=== PATIENT | male | born 1965 | race Caucasian/White ===

== ENCOUNTER 2017-02-03 01:05 | Inpatient (IN) | payer OTHER, MEDICARE ==
[~2017-02-03] VITALS: Ht 165.1 cm; Wt 95.0 kg
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
--- NOTE | 2017-02-03 01:17 | NUR ---
TRIAGE: BIBA FROM HOME ON PD PAPER FOR +SI COMMENTS. PATIENT ALSO ADMITS TO +ETOH TONIGHT, UNKNOWN AMOUNT. DENIES HI/DRUG USE. PATIENT CALM AND COOPERATIVE. BEING EVALUATED BY MD RAMIREZ ON ARRIVAL TO ER. SECURITY AT BEDSIDE FOR WANDING.
--- NOTE | 2017-02-03 01:17 | NUR ---
PATIENT ALSO REPORTS "WAS SEEN IN [facility] LAST WEEK FOR DEPRESSION AND +SI BUT THEY WOULDN'T ADMIT ME."
[2017-02-03 02:02] LABS: ABSOLUTE BASOPHIL COUNT 0 /CUMM (0.0-0.2); ABSOLUTE EOSINOPHIL COUNT 0.1 /CUMM (0.0-0.7); ABSOLUTE GRANULOCYTE CT 6.9 /CUMM (1.4-6.5); ABSOLUTE LYMPH COUNT 1.8 /CUMM (1.2-3.4); ABSOLUTE MONOCYTE COUNT 0.5 /CUMM (0.10-0.60); BASOPHIL % 0.5 % (0.0-2.0); EOSINOPHIL % 1.4 % (0-5); GRANULOCYTE % 73.1 % (42.2-75.2); HEMATOCRIT 42.5 % (42-52); MEAN CORPUSCULAR HGB 28.5 PG (27.0-31.0); MEAN CORPUSCULAR HGB CONC 34.2 G/DL (33.0-37.0); MEAN CORPUSCULAR VOLUME 83.2 FL (80.0-94.0); MEAN PLATELET VOLUME 8.2 FL (7.4-10.4); PLATELET COUNT 245 /CUMM (130-400); RBC DISTRIBUTION WIDTH 13.1 % (11.5-14.5); RED BLOOD CELL CT 5.11 /CUMM (4.70-6.10); WHITE BLOOD CELL COUNT 9.5 /CUMM (4.8-10.8)
--- NOTE | 2017-02-03 02:17 | NUR ---
PT MEDICATED WITH IM ATIVAN PER EMAR IN R DELTOID.
[2017-02-03] MEDS ORDERED: ABILIFY5 M1 PO (02:22)
[2017-02-03] MEDS ORDERED: SOMA250 M1 PO (02:23)
[2017-02-03] MEDS ORDERED: NORVASC2.5 M1 PO (02:24)
[2017-02-03] MEDS ORDERED: OXYCODONE HCL5 M2 (02:25)
[2017-02-03] MEDS ORDERED: LISINOPRIL5 M1 PO (02:25)
[2017-02-03] MEDS ORDERED: GABAPENTIN100 M2 PO (02:25)
[2017-02-03] MEDS ORDERED: HALOPERIDOL1 M1 PO (02:26)
--- NOTE | 2017-02-03 02:53 | NUR ---
EKG DONE AND SHOWN TO MD RAMIREZ
--- NOTE | 2017-02-03 05:22 | NUR ---
EKG COMPLETED AND LABS REDRAWN AND SENT BY KAVON MILLER
--- NOTE | 2017-02-03 07:00 | NUR ---
PT INFORMED CARE ASSUMED BY THIS RN NOW. PT REQUESTING MORNING MEDS, INFORMED THAT THEY ARE NOT DUE UNTIL 1000.
--- NOTE | 2017-02-03 08:20 | NUR ---
PT RESTING ON STRETCHER, INFORMED OF PLAN OF CARE TO WAIT FOR XRAY AND CRISIS EVAL.
--- NOTE | 2017-02-03 09:01 | NUR ---
PT TO XRAY VIA STRETCHER NOW.
--- NOTE | 2017-02-03 09:29 | RADIOLOGY REPORT ---
EXAMINATION: XR CHEST CLINICAL INFORMATION: Pain, evaluation for rib fracture COMPARISON: None TECHNIQUE: 2 views of the chest were obtained. FINDINGS: The cardiomediastinal silhouette and pulmonary vascularity are within normal limits. The left lung is clear. There is pleural thickening along the lateral right thoracic wall, extending for about 14 cm in craniocaudal dimension and with 11 mm maximum thickness. There is a partially visualized lucent line in the lateral aspect of the right 10th rib, could represent a partially visualized rib fracture. No pleural effusions or pneumothorax. Metallic wire in the posterior upper thoracic/lower cervical soft tissue. IMPRESSION: 1. No active cardiopulmonary finding. 2. Right lateral pleural thickening. Comparison with prior chest x-rays and patient's clinical history is suggested. Chest CT scan evaluation can be considered. 3. Possible right 10th rib nondisplaced rib fracture.
--- NOTE | 2017-02-03 10:24 | NUR ---
PT MEDICATED WITH MORNING MEDS, VSS PRIOR TO ADMINISTRATION.
--- NOTE | 2017-02-03 11:25 | NUR ---
ASSUMED CARE OF PT FROM KAVON JAMES. PY LYING ON STRETCHER, CALM AND COOPERATIVE AT THIS TIME. SITTER AT BEDSIDE.
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
--- NOTE | 2017-02-03 13:40 | NUR ---
PT CRYING AND REPORTING TROUBLE BREATHING WHILE LYING DOWN, IN REFERENCE TO HIS TRANSFER TO ANOTHER HOSPITAL. THIS RN ASKED PT TO SIT UP, WHICH HE DID, AND PT WAS PROVIDED WITH ANOTHER PILLOW. THIS RN TRIED TO REASSURE PT THAT HE WOULD BE TAKEN WELL CARE OF. PT INSTRUCTED TO TAKE DEEP BREATHS. PT APPEARED TO CALM AND AMBULATED TO TELEPHONE. SITTER AT DOOR.
--- NOTE | 2017-02-03 14:55 | NUR ---
PT ASLEEP AT THIS TIME ON HIS RIGHT SIDE. RESPIRATIONS EQUAL AND UNLABORED. SITTER AT DOOR.
--- NOTE | 2017-02-03 15:42 | NUR ---
PT MEDICATED WITH KLONOPIN 1MG, SOMA 350MG AND NEURONTIN 100MG PO PER EMAR. PT CALM AND COOPERATIVE. SITTER AT DOOR.
--- NOTE | 2017-02-03 17:05 | NUR ---
PT LYING ON BED WATCHING TV IN ROOM 15. PT CALM AND COOPERATIVE. SITTER AT DOOR.
--- NOTE | 2017-02-03 18:30 | NUR ---
PT MEDICATED WITH PERCOCET 2 TABS FOR ALL OVER CHRONIC BODY PAIN. PT TEARFUL AND STATES HE HAD A BAD PHONE CALL WITH HIS BROTHER. PT ASKING FOR ATIVAN. SITTER AT DOOR.
--- NOTE | 2017-02-03 19:45 | NUR ---
MST REPORTING TO RN THAT PT WAS PACING IN ROOM 15 AND ASKING FOR HIS NURSE. THIS RN CHECKED ON PT WHO WAS ROCKING BACK AND FORTH ON BED. THIS RN REASSURRED PT THAT SHE WOULD SPEAK WITH MD ABOUT OBTAINING HIM A MEDICATION FOR HIS ANXIETY.
--- NOTE | 2017-02-03 20:11 | NUR ---
PT MEDICATED WITH KLONOPIN 1MG PRN FOR ANXIETY. PT STATES HE IS "MANIC" AND WAS SEEN ROCKING BACK AND FORTH ON BED. SITTER AT DOOR FOR SAFETY
--- NOTE | 2017-02-03 22:18 | NUR ---
PT MEDICATED WITH [facility], WITH THE EXCEPTION OF TRAZODONE WHICH PT REFUSED. PT REMAINS CALM AND COOPERATIVE AT THIS TIME WITH SITTER AT DOOR.
--- NOTE | 2017-02-03 22:49 | NUR ---
ASSUMED CARE OF PT PER KAVON ALFONSO. PT RESING IN WITH RR, SITTER IN PLACE FOR SAFETY.
--- NOTE | 2017-02-04 01:30 | NUR ---
PT RESTING WITH RR, WILL CONTINUE TO MONITOR, PT SNORING. SITTER IN PLACE FOR SAFETY.
--- NOTE | 2017-02-04 03:39 | NUR ---
PT SLEEPING WITH RR, WILL CONTINUE TO MONITOR, SITTER IN PLACE FOR SAFETY.
--- NOTE | 2017-02-04 05:07 | NUR ---
PT MEDICATED WITH 2 TAB PERCOCET PER PRN ORDER FOR PAIN 05/15.
--- NOTE | 2017-02-04 06:32 | NUR ---
PT AWOKEN FOR VITALS, PT INFORMED BREAKFAST WILL ARRIVE SOON
--- NOTE | 2017-02-04 07:52 | NUR ---
PT RESTING IN DARKENED ROOM WITH EYES CLOSED REGULAR RESPIRATIONS NOTED WITH EQUAL CHEST RISE AND FALL PRESENT SITTER PRESENT. AWAITING DISPO TODAY
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
--- NOTE | 2017-02-04 10:47 | NUR ---
PHARMACY CALLED FOR AM MEDS.
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
--- NOTE | 2017-02-04 11:28 | NUR ---
ASSUMED CARE OF THIS PT. MEDICATED WITH MORNING MEDS PER EMAR. PT AWAITING TRANSFER TO [facility]. PT CALM AND COOEPRATIVE. SITTER AT DOOR.
--- NOTE | 2017-02-04 12:23 | NUR ---
PT MEDICATED WITH PERCOCET 2 TABS FOR BODY PAIN 05/15
--- NOTE | 2017-02-04 13:26 | NUR ---
PT CALM AND COOPERATIVE, WATCHING TV IN ROOM 15. SITTER AT DOOR. PT ANTICIPATING TRANSFER DOWN TO [facility].
--- NOTE | 2017-02-04 14:57 | NUR ---
PT'S VSS. PT CALM AND COOPERATIVE. SITTER AT DOOR.
--- NOTE | 2017-02-04 15:49 | NUR ---
PT MEDICATED WITH SOMA 350MG, LISINOPRIL 5MG AND ABILIFY 5MG PER EMAR
[2017-02-04 16:34] VITALS: BP 130/93
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
[2017-02-04 20:15] VITALS: BP 149/93
[2017-02-05] VITALS (7 sets, daily range): BP systolic 133–151; BP diastolic 75–90
--- NOTE | 2017-02-05 12:41 | NUR ---
PT IS TEARFUL BUT OVERALL PLEASANT, CALM, COOPERATIVE AND COMPLIANT, ACCEPTS REDIRECTION AND FEEDBACK WELL, REPORTED - MOOD/SLEEP AND NOT ALWAYS FEELING SAFE (TEAM AWARE) AND IS ABLE TO VERBALIZE NEEDS AND RESPONDS WELL WITH + REINFORCEMENT AND ENCOURAGEMENT, OVERALL IS STABLE.
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
--- NOTE | 2017-02-05 15:33 | SOCIAL WORKER PROG NOTE PSYCH ---
Social Work Progress Note Progress Note Pt states he was overwhelmed and sad and has a long history of cutting, pt has scars on stomach and on inner forearm. He has providers are [facility] and Has a PCP, I said to him , seems like you take care of yourself, he agreed. Pt mentions he has a brother who is sick, and it reminds him of the 4 family member he lost in a 2 year timespan including his Mom and Dad. "Its juts too much some time". * Family attitudes * Community resource contacts and liaison with other clinicians/agencies
--- NOTE | 2017-02-05 15:33 | SOCIAL WORKER PROG NOTE PSYCH ---
Social Work Progress Note Progress Note Please include, when applicable: * Interviews with the patient * Interviews with family members * Assessments linked to the treatment plan * Additions to or changes in the treatment plan along with reasons for same * Contacts with family and significant others in treatment, including family meeting(s) * Family attitudes * Community resource contacts and liaison with other clinicians/agencies
--- NOTE | 2017-02-05 15:33 | SOCIAL WORKER TX PLAN PSYCH ---
Treatment Plan - Please Document: - Evidence that there is ongoing collaboration between - the patient and the interdisciplinary team, - including the patient's active participation and - responsibility for engaging in the treatment regimen, - and that the treatment plan is individualized and - relevant to the patient's conditions. - Treatment plan should reflect documentation indicating - that all active therapeutic efforts are included. Strengths/Capabilities: Motivated for treatment Physical Limitations (Interventions): None noted. Walks with a limp. Problem/Goals #1 Problem #1: suicidal ideation Goal (Short Term): Be free of suicidal thoughts/attempts Develop 3 coping skills to deal with depression Identify 3 positive support systems to reach out to in crisis Goal ([place]): Shower, dress, and then do something every day Make short and simple to do lists and complete three tasks each day Celebrate little successes each day using positive self talk and/or journaling Develop strategies for thought distraction when ruminating on the past Interventions: Learn ways to manage anxiety symptoms accordingly and identify coping skills to prevent suicidal ideation from occurring due to anxious/depressed feelings. Learn ways to manage medications accordingly and identify positive supports to manage unusual symptoms that may occur. Modalities: individual therapy daily group therapy three to four groups daily family meeting if possible med management/ psych evaluation case management On the unit relapse prevention group, social skills, relaxation, spirituality, topic groups etc. Problem/Goals #2 Problem #2: polysubstance abuse Goal (Short Term): Goal: Be free of drug/alcohol use/abuse Avoid people, places and situations where temptation might be overwhelming Learn five triggers for alcohol & drug use Identify 3 sober supports Goal ([place]): I will attend all AA groups on unit and connect to AA in my community I will Identify 3 coping skills for cravings to use i.e sober supports I will set up aftercare for dual diagnosis program to address both mental health and substance abuse concerns Interventions: Learn ways to manage cravings to use substances accordingly and identify coping skills to prevent relapse from occurring due to anxious/depressed feelings. On the unit relapse prevention group, social skills, relaxation, spirituality, topic groups etc. Modalities: individual therapydaily group therapy three to four groups daily family meeting if possible med management/ psych evaluation case management DSM5/PS Stressors/Medical Prob Diagnosis' (DSM 5, Stressors, Medical): 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 Treatment Team - Responsibilities of members of the treatment team include: - Medication Management- MD or EMISSIONS REPAIR TECHNICIAN - Medication Administration and Monitoring- Nurse - Group Therapy- Occupational Therapist - 1:1 Therapy,Disch Planning,family involvement-[employer] Development Specialist Manager
--- NOTE | 2017-02-05 15:42 | IP INCIDENTAL NOTE PSYCH ---
Incidental Note Notation: HENRIQUE of [facility] in paper chart. Collateral received from psychiatrist Dr. Eugenia Rivas: Patient has a longstanding history of Schizoaffective disorder, Borderline PD, MDD, and a long history of alcohol dependence (in remission). Patient had returned from a vacation in [place] where he allegedly left his prescriptions (including rx Klonopin). He came to the clinic on 01/22 requesting a Klonopin refill after reporting the above. He was asked to provide a utox first which made him agitated led him to leave facility. Refill for Klonopin was never given to him. He then called [facility] and left multiple messages for psychiatrist and therapist stating he was done with tx there. He also fired his VNS. Shortly after he was admitted inpatient. Dr. Rivas reported much of his anxiety/hallucinations/mood symptoms are triggered by prior losses and currently ill brother. was informed that patient came to ED upon receiving news that his GF was diagnosed with cervical CA. He frequently uses cannabis. Had a history of alcohol dependence, has not used in some time. Dr. Rivas reported this is the patient's 3rd inpatient hospitalization in 2 weeks. He was previously hospitalized at [facility] and [facility]. Last medications prescribed by her were: Abilify 30mg daily Cogentin 1mg BID Risperdal 4mg BID Clonazepam 1mg TID Lexapro 20mg daily Trazodone 100mg QHS Dr. Rivas expressed she would be willing to have patient return to [facility] for continued tx post-dsicharge.
[2017-02-06] VITALS (7 sets, daily range): BP systolic 136–146; BP diastolic 70–83
--- NOTE | 2017-02-06 04:01 | NUR ---
SLEPT WELL UNTIL 0330 C/O RIB PAIN 04/14. PERCOCET GIVEN WITH GOOD EFFECT.
--- NOTE | 2017-02-06 13:52 | NUR ---
PT DISPLAYS ATTENTION SEEKING BEHAVIORS FROM TIME TO TIME, FREQUENTLY APPROACHES THE NURSES STATION TRYING TO ENGAGE WITH STAFF, OFTEN TALKS LOUDLY ABOUT HIS HISTORY REGARDING CUTTING HIMSELF. PT HAS BEEN ATTENDING GROUPS. NO SCORING ON CIWA. VS ARE STABLE. PT CONFIRMS PASSIVE SI BUT DENIES ANY PLANS WHILE ON THE UNIT.
--- NOTE | 2017-02-06 14:55 | CP SOUTH PROGRESS NOTE PSYCH ---
Psych (Inpt) Progress Note Progress Note Include the following elements, when applicable: Involvement in the active treatment of the patient with behavioral observations of the patient and the patient's response to the treatment. Review of the ongoing treatment process in the context of the treatment plan. Indication of how multi-disciplinary staff members are carrying out the treatment plan. Plans for future interventions and recommendations for revision of the treatment plan. Liaison with other physicians/providers. Progress Note: The patient is a 51-year-old white male admitted on 02/04/17. He carries the diagnosis schizoaffective disorder, bipolar type, borderline personality disorder by history, major depression by history, rule out PTSD, alcohol use disorder, rule out cocaine use disorder and cannabis use disorder. Case and treatment plan discussed in team meeting. Staff reports that he has homicidal thoughts towards his brother, basically to do a mercy killing because brother has COPD. Medication list reviewed. Patient seen at 1:14 PM. He is an ambulatory, bearded, overweight white male, dressed in T-shirt and pajama pants, sitting in a chair in no acute distress. He is calm, polite and cooperative. There is no psychomotor agitation or retardation. Speech is normal in volume, rate and tone. Affect is calm and blunted. He feels "so-so." Reports the lithium put him out like a light and he states this was his first time taking it. Reports he then awoke at 11 PM with vivid dreams, rats in his room, crawling up his bed. Then he slept until 2:30 AM. States he was up from 2:30 AM to 3:30 AM and then slept from 3:30 until 5: 30 AM. Reports having constant pain from multiple orthopedic issues. States he is just uncomfortable all the time. Patient requested an increase in Percocet dose from 10 mg to 15 mg. I checked the [facility] and saw that he has been receiving Endocet 10-325 t.i.d., so I informed him I would not be increasing his Percocet, which is ordered here at q.6 hours p.r.n. Reports mood is a little bit better because he is talking to people. Reports girlfriend has not been able to visit because she does not have a car. Rates sad mood and anxiety both about 8/10. Denies feeling helpless. Feels hopeless and worthless. Feels guilty for not having taken better care of his father, who in 1994 for melanoma. Denies suicidal thoughts but wants to cut himself to release emotional pain. He gives a safety promise for here. Reports he has been a cutter since 13 years old. Reports homicidal thoughts towards brother because brother is very ill and the patient wants to put his brother out of misery. I asked how patient's niece would feel about this, and he responsed that "she would probably be pissed." Patient states that he has a little bit of a God complex. Reports last auditory hallucinations were experienced about 2-3 weeks ago. Denies visual hallucinations. Feels that occasionally people are out to harm him, just people in general. Appetite is so-so. Energy is low. IMPRESSION: Slow progress. Continue present treatment plan. I have ordered a lithium for Friday morning. Continues to require inpatient level care.
--- NOTE | 2017-02-06 21:58 | NUR ---
PT IS VISIBLE ON UNIT, SOCIAL WITH PEERS AND WATCHING TV. PT STORMED OUT OF WRAP UP MEETING AND SAT IN LOUNGE. PT WAS VISIBLY ANXIOUS AND IRRITATED, SUPPORT PROVIDED BY STAFF WHERE PT DISCLOSED FRUSTRATION WITH SOME OF HIS PEERS. PT IS FREQUENTLY AT DESK, INTRUSIVE AT TIMES. IRRITABLE IF REQUESTS ARE NO MET IMMEDIATELY. OVERALL COOPERATIVE AND COMPLIANT WITH STAFF. NO SI REPORTED. PT HAS AN ANXIOUS MOOD AND AFFECT.
[2017-02-07] VITALS (8 sets, daily range): BP systolic 104–145; BP diastolic 76–87
--- NOTE | 2017-02-07 10:52 | CP SOUTH PROGRESS NOTE PSYCH ---
Psych (Inpt) Progress Note Progress Note Include the following elements, when applicable: Involvement in the active treatment of the patient with behavioral observations of the patient and the patient's response to the treatment. Review of the ongoing treatment process in the context of the treatment plan. Indication of how multi-disciplinary staff members are carrying out the treatment plan. Plans for future interventions and recommendations for revision of the treatment plan. Liaison with other physicians/providers. Progress Note: I discussed this patient's progress to date, current mental status, treatment process in the context of the treatment plan, and discharge planning with staff/ team in the daily morning inpatient team meeting. I also met with the patient myself in individual session. OBJECTIVE: Current Medications Sig/Evon Start time Last Medication Dose Route Stop Time Status Admin Acetaminophen 500 MG Q12P PRN 02/07 1700 AC PO Amlodipine Besylate 2.5 MG DAILY 02/05 1000 AC 02/07 PO 1024 Benztropine Mesylate 1 MG BID 02/04 2200 AC 02/07 PO 1024 Carisoprodol 350 MG TID 02/04 1600 AC 02/07 PO 1652 Clonazepam 1 MG 02/07 2000 AC PO 02/14 1959 Clonazepam 0.5 MG 0800 02/07 0800 AC 02/07 PO 02/14 0759 1024 Clonazepam 1 MG BID 02/04 2200 DC 02/06 PO 02/11 2159 2101 Gabapentin 400 MG TID 02/07 2200 AC PO Gabapentin 100 MG .STK-MED ONE 02/06 2237 DC PO 02/06 2238 Gabapentin 300 MG TID 02/05 1600 DC 02/07 PO 1652 Gabapentin 200 MG Q2 HRS NEEDED PRN 02/04 1545 AC 02/06 PO 2243 Haloperidol 7.5 MG BID 02/07 2200 AC PO Haloperidol 2 MG .STK-MED ONE 02/06 1728 DC PO 02/06 1729 Haloperidol 2 MG Q4 HRS NEEDED PRN 02/05 1500 AC 02/06 PO 2242 Haloperidol 5 MG BID 02/04 2200 DC 02/07 PO 1024 Lisinopril 5 MG DAILY 02/04 1515 AC 02/07 PO 1024 [place] Carbonate 300 MG 0800,02/05 2000 AC 02/07 PO 1024 Melatonin 5 MG AT BEDTIME 02/07 2200 AC PO Melatonin 3 MG AT BEDTIME PRN 02/07 1130 AC PO Melatonin 5 MG AT BEDTIME PRN 02/05 2200 DC 02/06 PO 02/07 2159 2112 Oxycodone/ 2 TAB Q6P PRN 02/04 1530 AC 02/07 Acetaminophen PO 1209 Polyethylene Glycol 17 GM DAILY 02/07 1715 AC PO Vital Signs Date Time Temp Pulse Resp B/P B/P Pulse O2 O2 Flow FiO2 Mean Ox Delivery Rate 02/07 1551 78 104/76 02/07 1544 78 104/76 02/07 1224 79 134/84 0505 1218 79 134/84 0505 1024 75 127/84 0505 1024 75 127/84 0505 0738 98.4 75 127/84 05/05 0722 98.4 75 127/84 05 1942 98.4 74 145/70 ASSESSMENT: Chart, progress notes, labs, VS and medication list reviewed. No new lab results today. VS within normal limits. Met with patient this morning. He shared complaints of arthritis pain and constipation. Could not recall last BM. Presented calm and cooperative. Reported his mood as "not so good." Expressed frustration towards select intrusive peers. Reported last night he could not cope with a certain female peer; as a result he hit himself in the R eye. He denied changes in vision. There was no evidence of bruising. He denied pain to affected area. He endorsed urges to harm himself by cutting, but deneid acting on these urges since arrival to unit. Asked patient if he would benefit from a sitter for safety, however he claimed this would make him more agitated. He gave a safety promise while on unit and reported feeling safe here. Reported that he can cope by taking space away from trigger and by processing feelings with staff before acting on self-harming behavior going forward. He denied passive and active suicidal ideation, plans and intent. He expressed passive HI towards his ill brother with COPD. Asked patient again how he thinks his niece (brother's daughter) would feel if he acted on these thoughts? He reported it would devastate her. He reported that thinking of his family has prevented him thus far from acting on these thoughts. He denied HI plans or intent. He reported recurrence of AH, non-command and non-distressing in nature of a "mumbling male voice." He noted this to be the same voice he always hears, but last heard 1-2 weeks ago. Reported the voice "comes and goes. " He denied visual hallucinations and paranoid ideation. There was no evidence of delusions or patient responding to internal stimuli. He reported sleep was poor d/t frequent night time awakenings. Reported appetite was stable. Cognition was grossly intact. Insight & judgement limited. Reported tolerating medications well and denied untoward effects. PLAN: 1. Continue monitoring on unit for mood, safety, AH. 2. Increase Haldol from 5mg BID to 7.5mg BID for AH. Continue prn Haldol. 3. Add Melatonin from 5mg QHS prn for insomnia. Continue Melatonin 5mg QHS. 4. Add Tylenol 500mg Q12H prn for moderate pain and increase Gabapentin from 300mg TID to 400mg TID for neuropathic pain. Continue prn percocet as ordered. 5. Continue [place] as ordered. Level scheduled for 02/09/17 at 0600. 6. Start Miralax daily for constipation. 7. Dispo planning per primary team.
--- NOTE | 2017-02-07 13:31 | SOCIAL WORKER PROG NOTE PSYCH ---
Social Work Progress Note Progress Note ARIAN MALONEY [id number] 1965 ARIAN MALONEY [id number] Pended Authorization # Client Authorization # Type of Request [id number] CONCURRENT Date of Admission/ Start of Services Requested From Submission Date 02/04/2017 02/07/2017 02/07/2017
--- NOTE | 2017-02-07 13:51 | SOCIAL WORKER PROG NOTE PSYCH ---
Social Work Progress Note Progress Note Pt states he is coping with being on unit, and social anxiety, a resident made him frustrated and he stated he punched himself in the face to relieve feeling upset, "when someone upsets me, I take it out on myself instead of them". He reports I know the self harming behaviors are "a short term solution for a correction problem". Pt continues to be stressed and feels a bit more safe, but not stable. Would not want me to contact family, but is agreeable to returning to [facility], and states he rides the bus, and can manage to deal with anxiety on the bus bi weekly for his appointmetns.
--- NOTE | 2017-02-07 15:08 | NUR ---
PT PRESENT IN COMMUNIYT - INTERACTING WITH PEERS AND STAFF. PT VERY SOCIAL. PT COMPLIANT AND COOPERATIVE. PT MOOD STABLE - BRIGHT AFFECT. PT ATE WELL. VS WNL. NO COMPLAINTS.
--- NOTE | 2017-02-07 20:23 | NUR ---
PT INTRODUCED HIMSELF TO STAFF SOON SHIFT CHANGED. HE HAS NOT BEEN PROBLEMATIC ON THE UNIT AND EXPRESSES THOUGHTS AND OPINIONS TO STAFF. HE APPEARS TO BE SLIGHTLY CONSTRICTED AT TIME BUT DOES NOT ISOLATE. PT DENIES ANY THOUGHTS OF SI AT THIS TIME.
[2017-02-08] VITALS (7 sets, daily range): BP systolic 126–142; BP diastolic 76–90
--- NOTE | 2017-02-08 04:06 | NUR ---
Slept. No issues or complaints
--- NOTE | 2017-02-08 14:12 | CP SOUTH PROGRESS NOTE PSYCH ---
Psych (Inpt) Progress Note Progress Note Include the following elements, when applicable: Involvement in the active treatment of the patient with behavioral observations of the patient and the patient's response to the treatment. Review of the ongoing treatment process in the context of the treatment plan. Indication of how multi-disciplinary staff members are carrying out the treatment plan. Plans for future interventions and recommendations for revision of the treatment plan. Liaison with other physicians/providers. Progress Note: Pt notes that he did not sleep well. Notes overall improved mood though fleeting passive SI earlier in the day. Denies current active or passive SI. Denies HI. Denies AVHs. Spoke briefly about rescue cat at home that he misses. Current Medications Sig/Evon Start time Last Medication Dose Route Stop Time Status Admin Acetaminophen 500 MG Q12P PRN 02/07 1700 AC PO Amlodipine Besylate 2.5 MG DAILY 02/05 1000 AC 02/08 PO 0900 Benztropine Mesylate 1 MG BID 02/04 220 AC 02/08 PO 0856 Carisoprodol 350 MG TID 02/04 1600 AC 02/08 PO 0901 Clonazepam 0.5 MG BID 02/08 1000 AC 02/08 PO 02/14 2159 0859 Clonazepam 1 MG 02/07 DC 02/07 PO 02/14 1959 1917 Clonazepam 0.5 MG 0800 02/07 0800 DC 02/07 PO 02/14 0759 1024 Docusate Sodium 100 MG BID 02/07 2200 AC 02/08 PO 0856 Gabapentin 400 MG TID 02/07 2200 AC 02/08 PO 0859 Gabapentin 200 MG Q6-PRN PRN 02/07 2000 AC PO Gabapentin 300 MG TID 02/05 1600 DC 02/07 PO 1652 Gabapentin 200 MG Q2 HRS NEEDED PRN 02/04 1545 DC 02/06 PO 2243 Haloperidol 7.5 MG BID 02/07 2200 AC 02/08 PO 0857 Haloperidol 2 MG Q4 HRS NEEDED PRN 02/05 1500 AC 02/06 PO 2242 Lisinopril 5 MG DAILY 02/04 1515 AC 02/08 PO 0900 [place] Carbonate 300 MG 0800,02/05 AC 02/08 PO 0856 Melatonin 9 MG AT BEDTIME 02/08 2200 UNVr PO Melatonin 5 MG AT BEDTIME 02/07 2200 DC 02/07 PO 2158 Melatonin 3 MG AT BEDTIME PRN 02/07 1130 AC PO Oxycodone/ 2 TAB Q6P PRN 02/04 1530 AC 02/08 Acetaminophen PO 1216 Polyethylene Glycol 17 GM DAILY 02/07 1715 AC PO Laboratory Tests 02/06 0553 Chemistry Sodium (137 - 145 mmol/L) 138 Hemoglobin A1c (4.2 - 5.8 %) 6.3 H Vital Signs Date Time Temp Pulse Resp B/P B/P Pulse O2 O2 Flow FiO2 Mean Ox Delivery Rate 02/08 1215 87 142/79 02/08 1214 87 142/79 / 0900 97.6 77 16 126/90 05/ 0900 97.6 77 16 126/90 05/06 0808 97.6 77 126/90 05/06 0759 97.6 77 126/90 05/05 1999 97.8 75 145/87 05/05 195 97.8 75 145/87 0505 1551 78 104/76 05/05 1544 78 104/76 MSE Appears as stated age. Cooperative behavior, good, appropriate eye contact. Nl speech rate and prosody. No psychomotor retardation or agitation. Mood fine Affect flat constricted, appropriate, non-liable. Linear and goal directed thought process. Denies SI or HI. Does not appear to be responding to internal stimuli. Denies AVHs, paranoia, or delusions. I/J: limited A/P: Pt with MDD with psychotic features with intermittent fleeting SI which continues. -Will monitor closely for more prolonged SI or active SI, low threshold for 1:1 - Increase melatonin to 9mg nightly - Otherwise continue medication regimen - [facility]
--- NOTE | 2017-02-08 16:21 | NUR ---
PT HAS BEEN WITHDRAWN AND ISOLATIVE IN ROOM MOST OF DAY. PT ENDORSES PASSIVE SI, STATES HE WILL NOT HARM SELF HERE. PT PRESENT IN COMMUNITY FOR MEALS AND VITALS. NO S/S OF DETOX NOTED OR REPORTED, NO SCORING ON CIWA. PT HAS SOME INTERACTION WITH PEERS AND STAFF WHEN PRESENT ON UNIT. PT ATTENDED ONE GROUP TODAY. VITALS ARE STABLE, APPETITE IS GOOD.
--- NOTE | 2017-02-08 18:32 | NUR ---
PATIENT IS PRESENT IN THE COMMUNITY, A&O X 3, COMPLIANT WITH MEDICATION AND GROUP THERAPIES, PT REPORT GOOD NIGHT SLEEP AND APPETITE, VITAL SIGN IS STABLE AND WNL, MOOD IS STABLE WITH FULL RANGE AFFECT, INTERACTS WITH OTHER PEERS AND STAFF MEMBERS. PT HAS ONE ANGER EXPLOSION RIGHT AFTER THE DINNER SIGHT HIS MENUE THAT DID NOT COME HE REQUESTED. PATIENT DENIES THOUGHT OF SELF-HARM AND TO SOMEONE ELSE.
--- NOTE | 2017-02-08 20:46 | NUR ---
PT IS ISOLATIVE AND WITHDRAWN, REMAINING IN BED FOR MAJORITY OF EVENING. WHEN ASKED FOR 1999 VITAL SIGNS, PT AT FIRST REFUSED BUT COMPLIED WHEN ENCOURAGED. OVERALL COOPERATIVE AND COMPLIANT WITH STAFF. AT 1600 VITALS, PT REPORTED SI BUT CONTRACTS FOR SAFETY AND HAS NO INTENT TO HARM SELF WHILE ON UNIT. NO COMPLAINTS REPORTED. PT HAS AN IRRITABLE MOOD AND FLAT/CONSTRICTED AFFECT.
[2017-02-09] VITALS (8 sets, daily range): BP systolic 136–140; BP diastolic 77–87
--- NOTE | 2017-02-09 05:47 | NUR ---
PT IN BED VERY EARLY. PT SLEPT.
--- NOTE | 2017-02-09 11:40 | CP SOUTH PROGRESS NOTE PSYCH ---
Psych (Inpt) Progress Note Progress Note Include the following elements, when applicable: Involvement in the active treatment of the patient with behavioral observations of the patient and the patient's response to the treatment. Review of the ongoing treatment process in the context of the treatment plan. Indication of how multi-disciplinary staff members are carrying out the treatment plan. Plans for future interventions and recommendations for revision of the treatment plan. Liaison with other physicians/providers. Progress Note: Pt notes that he slept "much better." He notes good mood today. Endorses continued passive SI to "maybe cut myself but then I ignore it and feel better. " Does not feel active SI. Feels can come to staff if increasing SI. Denies AVHs. Current Medications Sig/Evon Start time Last Medication Dose Route Stop Time Status Admin Acetaminophen 500 MG Q12P PRN 02/07 1700 AC PO Amlodipine Besylate 2.5 MG DAILY 02/05 1000 AC 02/09 PO 0840 Benztropine Mesylate 1 MG BID 02/04 2200 AC 02/09 PO 0839 Carisoprodol 350 MG TID 02/04 1600 AC 02/09 PO 0842 Clonazepam 0.5 MG BID 02/08 1000 AC 02/09 PO 02/14 2159 0842 Docusate Sodium 100 MG BID 02/07 2200 AC 02/09 PO 0840 Gabapentin 400 MG TID 02/07 2200 AC 02/09 PO 0839 Gabapentin 200 MG Q6-PRN PRN 02/07 2000 AC PO Haloperidol 7.5 MG BID 02/07 2200 AC 02/09 PO 0839 Haloperidol 2 MG Q4 HRS NEEDED PRN 02/05 1500 AC 02/06 PO 2242 Lisinopril 5 MG DAILY 02/04 1515 AC 02/09 PO 0840 [place] Carbonate 300 MG 08,02/05 AC 02/09 PO 0839 Melatonin 9 MG AT BEDTIME 02/08 2200 AC 02/08 PO 2121 Melatonin 5 MG AT BEDTIME 02/07 2200 DC 02/07 PO 2158 Melatonin 3 MG AT BEDTIME PRN 02/07 1130 AC PO Oxycodone/ 2 TAB Q6P PRN 02/04 1530 AC 02/09 Acetaminophen PO 0552 Polyethylene Glycol 17 GM DAILY 02/07 1715 AC PO Laboratory Tests 02/09 0549 Toxicology [employer] (0.6 - 1.2 mmol/L) 0.4 L Vital Signs Date Time Temp Pulse Resp B/P B/P Pulse O2 O2 Flow FiO2 Mean Ox Delivery Rate 02/10 0840 97.3 75 16 140/80 / 0840 97.3 75 16 140/80 / 0817 97.3 75 140/80 05/07 0733 97.5 75 140/80 05/06 2003 98.2 96 129/78 05/06 1954 98.2 96 129/78 05/06 1619 100 139/76 05/ 1215 87 142/79 05/ 1214 87 142/79 MSE Appears as stated age. Cooperative behavior, good, appropriate eye contact. Nl speech rate and prosody. No psychomotor retardation or agitation. Mood good Affect flat constricted, appropriate, non-liable. Linear and goal directed thought process. + passive SI or HI. Does not appear to be responding to internal stimuli. Denies AVHs, paranoia, or delusions. I/J: limited A/P: Pt with MDD with psychotic features with intermittent fleeting SI which continues. - Will monitor closely for more prolonged SI or active SI, low threshold for 1:1 - Continued melatonin to 9mg nightly; pt slept well - Li level 0.4, increase from 300mg BID to 300mg daily and 450mg nightly, need to monitor closely as co-administration with ACEI. - Otherwise continue medication regimen - Encourage intergration into the [facility]
--- NOTE | 2017-02-09 14:05 | NUR ---
PT HAS BEEN WITHDRAWN AND ISOLATIVE IN ROOM, SLEEPING MUCH OF DAY. PT DENIES SI AT THIS TIME, NO COMPLAINTS OFFERED. PT MOOD IS STABLE WITH A FLAT AND EUTHYMIC AFFECT. PT OOB MORE AFTER LUNCH, SITTING IN LOUNGE BUT HAS MINIMAL INTERACTION WITH OTHERS. PT HAS ATTENDED ONE GROUP TODAY. VITALS ARE STABLE, APPETITE IS GOOD.
--- NOTE | 2017-02-09 22:14 | NUR ---
PT IS CALM, COOPERATIVE WITH STAFF AND PEERS, AND COMPLIANT WITH UNIT RUELS. PT IS OFTEN IN [place], INTERACTING WELL WITH OTHERS. MOOD IS STABLE, AFFECT IS EUTHYMIC TO FULL RANGE, COMMUNICATION IS ORGANZIED AND APPEARS NORMAL IN ALL RESPECTS, AND APPETITE IS NORMAL. PT MADE AN SI COMMENT AT 1600 VITALS, AFTERWARDS CONTRACTED FOR SAFETY AND CHARGE NURSE WAS NOTIFIED.
--- NOTE | 2017-02-10 05:14 | NUR ---
PT IS LESS ANXIOUS. PT IN BED EARLY AND SLEPT. 2 PERCOCET AT 0510 FOR BACK PAIN.
[2017-02-10 07:39] VITALS: BP 127/78
[2017-02-10 07:43] VITALS: BP 127/78
[2017-02-10 12:01] VITALS: BP 113/71
--- NOTE | 2017-02-10 12:14 | NUR ---
PTS GOAL TODAY WAS TO ATTEND THE GROUPS AND ABSORB MUCH HE COULD. HE IS CALM AND COOPERATIVE WITH STAFF AND HIS PEERS.PT IS COMPLIANT WITH HIS MED REGIME AND WHEN ASKED HE DENIED ANY SUICIDAL THOUGHTS
[2017-02-10 12:30] VITALS: BP 133/71
--- NOTE | 2017-02-10 13:01 | CP SOUTH PROGRESS NOTE PSYCH ---
Psych (Inpt) Progress Note Progress Note Include the following elements, when applicable: Involvement in the active treatment of the patient with behavioral observations of the patient and the patient's response to the treatment. Review of the ongoing treatment process in the context of the treatment plan. Indication of how multi-disciplinary staff members are carrying out the treatment plan. Plans for future interventions and recommendations for revision of the treatment plan. Liaison with other physicians/providers. Progress Note: I discussed this patient's progress to date, current mental status, treatment process in the context of the treatment plan, and discharge planning with staff/ team in the daily morning inpatient team meeting. I also met with the patient myself in individual session. OBJECTIVE: Current Medications Sig/Evon Start time Last Medication Dose Route Stop Time Status Admin Acetaminophen 500 MG Q12P PRN 02/07 1700 AC PO Amlodipine Besylate 2.5 MG DAILY 02/05 1000 AC 02/10 PO 0821 Benztropine Mesylate 1 MG BID 02/04 2200 AC 02/10 PO 0822 Carisoprodol 350 MG TID 02/04 1600 AC 02/10 PO 0819 Clonazepam 0.5 MG BID 02/08 1000 AC 02/10 PO 02/14 2159 0819 Docusate Sodium 100 MG BID 02/07 2200 AC 02/10 PO 0821 Gabapentin 400 MG TID 02/07 2200 AC 02/10 PO 0652 Gabapentin 200 MG Q6-PRN PRN 02/07 2000 AC PO Haloperidol 7.5 MG BID 02/07 2200 AC 02/10 PO 0822 Haloperidol 2 MG Q4 HRS NEEDED PRN 02/05 1500 AC 02/06 PO 2242 Lisinopril 5 MG DAILY 02/04 1515 AC 02/10 PO 0821 [place] Carbonate 300 MG DAILY AC 02/10 0700 AC 02/10 PO 0654 [place] Carbonate 450 MG AT BEDTIME 02/09 2200 AC 02/09 PO 2205 Melatonin 9 MG AT BEDTIME 02/08 2200 AC 02/09 PO 2204 Melatonin 3 MG AT BEDTIME PRN 02/07 1130 AC PO Oxycodone/ 2 TAB Q6P PRN 02/04 1530 AC 02/10 Acetaminophen PO 1115 Polyethylene Glycol 17 GM DAILY 02/07 1715 AC PO Laboratory Tests 02/09 0549 Toxicology [place] (0.6 - 1.2 mmol/L) 0.4 L Vital Signs Date Time Temp Pulse Resp B/P B/P Pulse O2 O2 Flow FiO2 Mean Ox Delivery Rate 02/10 1230 76 133/71 02/10 1201 76 113/71 02/10 0821 76 127/78 02/10 0821 76 127/78 02/10 0743 97.6 76 127/78 02/10 0739 97.6 76 127/78 02/09 2044 98.3 79 138/79 02/09 1953 98.3 79 138/79 02/09 1608 78 136/87 02/09 1538 78 136 ASSESSMENT: Chart, progress notes, labs, VS and medication list were reviewed. Li level resulted subtherapeutic at 0.4mmol/L. Over the weekend, [place] was increased from 300mg BID to 300mg QAM and 450mg QPM. Will closely monitor Li level, patient on ACEI. Melatonin was also increased to 9mg QHS for DFA. Met with patient individually this afternoon. He was noted resting in room. He promptly awoke to voice; he easily engaged in conversation. Stated he had a fair weekend. He reported his mood was "better." When asked in what way, patient stated "I'm more hopeful, I'm not having bad thoughts." Affect was constricted, non-labile. Eye contact was appropriate. Speech was normal in rate, tone and volume. Stated his sleep and appetite were good. He denied passive and active suicidal ideation, plans and intent. Denied urges to harm self. He denied homicidal ideation, auditory and visual hallucinations. Thought process was linear, goal-directed. Congition was grossly intact. Asked patient if he would be open to having a family meeting with the brother he lives with, or with his girlfriend. He declined, first stating neither one could come to the hospital for a meeting. When asked if he would be open to having a phone conference with either, he declined again, stating I don't want either involved. He would not indentify why he would not want his brother or girlfriend involved. He reported tolerating all medications well and denied untoward effects. He was agreeable to continue taking. PLAN: 1. Continue monitoring on unit for safety, mood, psychosis, and suicidal ideation. 2. Continue current medications. Li level scheduled for 02/12/17. 3. Arrange [facility] outpatient appointments. 4. Dispo planning per primary team.
--- NOTE | 2017-02-10 15:05 | SOCIAL WORKER PROG NOTE PSYCH ---
Social Work Progress Note Progress Note Left voice mail to schedule follow up appintmetns at [facility] [phone] Chase ext [phone] and ext [phone]
--- NOTE | 2017-02-10 15:38 | SOCIAL WORKER PROG NOTE PSYCH ---
Social Work Progress Note Progress Note Pt was tired when I met with him, he denies si/hi. Continues to refuse family involvement. Pt indicates he feels better, and agrees to return to treaters. I explored IOP as an option, he was not sure he would be able to manage his anxiety in groups, I stated it would give him additional support and that he should continue to explore this option with outpatient social security benefits interviewer as she aslo agrees the support and structire would be helpful.
[2017-02-10 16:23] VITALS: BP 148/77
[2017-02-10 19:58] VITALS: BP 140/84
--- NOTE | 2017-02-10 23:16 | NUR ---
PT HAS NOT DISPLAYED ANY EMOTIONAL DISTRESS OTHER THAN RIGHT BEFORE HE WENT TO BED. HE RECEIVED HIS MEDS AND WAS UPSET THAT NO ONE INFORMED HIM IN REGARDS TO SPECIFIC MED CHANGES. PT WAS AGITATED AND RESCINDED A RELEASE OF INFORMATION FOR HIS FAMILY. PT DENIES ANY THOUGHTS OF SI AT THIS TIME.
--- NOTE | 2017-02-11 05:27 | NUR ---
PATIENT WAS AWAKE IN BED X1, OTHERWISE SLEPT ALL NIGHT.
[2017-02-11 07:40] VITALS: BP 136/74
[2017-02-11 08:03] VITALS: BP 136/74
[2017-02-11 12:09] VITALS: BP 138/76
--- NOTE | 2017-02-11 12:47 | SOCIAL WORKER PROG NOTE PSYCH ---
Social Work Progress Note Progress Note Made an outpatient appointment with Zahida Salinas and Dr. Rivas for FridayFebruary 14 at 9:[address] Chase and 10am with Zahida social science teacher at [facility] IOP referral was also made [facility] Care was set up to begin February 12, 2017 meds need to be called into [facility] in [facility] and med list need to faxed to [phone] attn: Isabella Silva confirmation number #[id number] they will be picking him up at 3pm today.
[2017-02-11] MEDS ORDERED: GABAPENTIN400 M2 PO (13:19)
[2017-02-11] MEDS ORDERED: HALOPERIDOL5 MG PO (13:21)
[2017-02-11] MEDS ORDERED: LITHIUM CARBON300 M4 PO (13:22)
[2017-02-11] MEDS ORDERED: LITHIUM CARBON150 M1 PO (13:23)
[2017-02-11] MEDS ORDERED: DOCUSATE SODIU100 M3 PO (13:24)
[2017-02-11] MEDS ORDERED: BENZTROPINE MESY1 M1 PO (13:24)
[2017-02-11] MEDS ORDERED: MELATONIN3 M4 PO (13:25)
--- NOTE | 2017-02-11 13:42 | NUR ---
PT IS SCHEDULED FOR D/C TO [facility] TODAY. HE REPORTS AND DEMONSTRATES IMPROVEMENT IN HIS MOOD AND ABILITY TO FUNCTION. HE DENIES ANY THOUGHTS OF SUICIDE AND NO THOUGHTS OF CUTTING HIMSELF. PT IS COMPLIANT WITH HIS MED REGIME AND WILL HAVE VISITING NURSES TO ASSIST WITH MED ADMINISTRATION. PT AGREES TO FOLLOW UP WITH [facility] AND HAS APPT ON 02/14/17.PT IS GIVEN EDUCATION R/T MANAGING HIS MOOD D/O AND ON PREVENTING SUICIDE
[2017-02-11] MEDS ORDERED: PERCOCET 5-3251 EACH PO (14:08)
[2017-02-11] MEDS ORDERED: KLONOPIN0.5 M1 PO (14:08)
[2017-02-11] MEDS ORDERED: KLONOPIN1 M1 PO ×2 (14:19→14:22)
--- NOTE | 2017-02-11 14:32 | DISCHARGE SUMMARY REPORT-PSYCH ---
Visit Information Visit Dates/Diagnosis' Admission Date: 02/04/17 Discharge Date: 02/11/17 Reason for Admission: Patient was brought to [facility] Emergency Department on 02/03/17 on a PEER for suicidal ideation with plan and intent to cut his wrist and bleed to . He also had expressed homicidal ideation in the Emergency Department towards his ill brother with plan to smother him with a pillow. Psy Discharge Primary Diag: Schizoaffective disorder, bipolar type Psy Discharge Secondary Diag: MDD by history; R/O PTSD; Alcohol use disorder; R/ O Cocaine use disorder; Cannabis use disorder, severe; HTN; Chronic pain. Hospital Course Significant Lab Findings: Lab Hemoglobin A1c 6.3 % H 02/06/17 0553 Triglycerides 189 mg/dL H 02/03/17 0155 Hominy 0.4 mmol/L L 02/09/17 0549 U Benzodiazepines Scrn 505 NG/ML H 02/03/17 0309 Urine Cannabis Screen > 80.00 NG/ML H 02/03/17 0309 Urine Cocaine Screen > 1000.00 NG/ML H 02/03/17 0309 Course Complications: None. Consultations: The patient was seen for admission history and physical by satellite tv technician Dr. Damien Bustillos. Please see his note for additional information. Allergies: Coded Allergies: Fish Containing Products (Intermediate, HIVES 02/03/17) fish derived (HIVES 02/05/17) shellfish derived (HIVES 02/05/17) Hospital Course/TX Response: The patient was monitored on the unit for safety, mood, suicidal ideation, homicidal ideation, auditory hallucinations, and substance withdrawal. He was monitored on [place] protocol for alcohol withdrawal, however did not score or require prn Ativan. He participated in multimodal treatments on the unit. During hospitalization, the patient reported non-command and non-distressing auditory hallucinations of a "mumbling male voice." Abilify was discontinued. Haldol 5mg BID was started and increased to 7.5mg BID for auditory hallucinations. Cogentin 1mg BID was continued to prevent muscle stiffness. Klonopin was gradually decreased from 1mg TID to 0.5mg BID for anxiety. Gabapentin was increased from 100mg TID to 400mg TID for anxiety and neuropathic pain. Trazodone was discontinued per the patient's request, and Melatonin 5mg was started QHS for sleep induction/insomnia. Melatonin was increased from 5mg QHS to 9mg QHS for sleep induction/insomnia. Hominy 300mg BID was started for suicidal ideation and mood stabilization, this was later increased to 300mg QAM and 450mg QHS. Soma was continued as prescribed outpatient as was Percocet for chronic pain. Lisinopril and Norvasc were also continued as prescribed outpatient for HTN. During the hospital course, the patient's mood and affect improved. Suicidal ideation, homicidal ideation, and auditory hallucinations fully remitted. A phone conference was held with the patient, his brother, Justin, and this lead technical writer. Justin expressed no safety concerns regarding the patient or with him having contact with their ill brother. He reported their ill brother is not confined to home. Justin also reported that he frequently visits his ill brother. He has no safety concerns over the patient being discharged. Reported the patient has never made attempts to harm his brother or direct threats towards his brother, or towards anyone else. Justin, with whom the patient lives, reported he will assume responsibility for the patient post discharge. Ujstin was in agreement with discharge plan for patient to follow-up at [facility] and visiting nurse service. A referral to [facility] was also made. The patient was also in favor of this discharge plan. On the date of discharge, 02/12/17, the patient shared that he was upset his Klonopin had been tapered down. He claimed that he had forgotten this was explained to him previously. When informed that his Utox on admission had been positive for other illicit substances substances, and this being a concern given that Klonopin is a controlled substance, he verbalized understanding and accepted rationale. He reported that his mood was much improved since initial admission on 02/04/17. He was oriented to person, place, and time. He described his mood as "calmer." His affect was constricted, non-labile. Speech was normal in rate, tone and volume; non-pressured. Eye contact was appropriate. He had no complaints. He rated his depression a 2/10 (10 being the worst) and anxiety a 4/ 10 (10 being the worst). He denied active and passive suicidal ideation, plans and intent. He denied urges to self harm. He denied active and passive homicidal ideation, plans and intent. He denied active and passive homicidal ideation, plans and intent towards his ill brother. When asked about what changed since initial admission, he reported "I gave a lot of thought about how acting on those thoughts would destroy my family." He stated and also believed he will not harm himself or others. He gave protective factors of "my girlfriend," and "both my brothers." He denied paranoid ideation, auditory and visual hallucinations. There was no evidence of betty delusions. Thought process was organized and linear. Cognition was grossly intact. He expressed motivation to resume outpatient treatment at [facility] and was grateful they accepted him back as a patient. He was also agreeable to start visiting nurse services with [facility]. He was also informed that a referral to [facility] was made. He reported tolerating all medications well and denied untoward medication effects. Patient reported feeling safe and ready for discharge. Discharge HBIPS - Tobacco Use Treatment Offered Post DC Medications Offered: NA-No Tob Use >30 days Post DC Tobacco Treatment Plan: NA-No Tobacco use >30days - EtOH/Drug Use D/O Treatment Offered Post DC Medications Offered: Ref Med EtOH/Drug Use D/O Post DC EtOH/SubAbuse TX Plan: Refused Post DC Tx Pgm Metabolic Screening - Screen if on a Neuroleptic Medication - Metabolic screening should include: - Blood Pressure, BMI, Glucose or Hgb A1c, & a - Lipid profile from within the past 365 days. Metabolic Screening () Not Applicable, patient not on a neuroleptic. OR ([X]) Patient on a neuroleptic(s) . Enter below results for Glucose or Hemoglobin A1C, and lipid panel if obtained during the last 365 days. BMI: 34.800 Blood Pressure: 138/76 Laboratory Results (If applicable): Lab Cholesterol 169 MG/DL 02/03/17 0155 Cholesterol/HDL Ratio 4 % 02/03/17 015 HDL Cholesterol 43 mg/dL 02/03/17 015 Hemoglobin A1c 6.3 % H 02/06/17 0553 LDL Cholesterol, Calc 89 mg/dL 02/03/17154 Triglycerides 189 mg/dL H 02/03/17 015 Discharge Instructions General Discharge Information Discharge Medications: Discharge Medications- (Dose, route, freq, indication): START taking these NEW Home Medications: Oxycodone HCl/ Dose: ORAL, EVERY 8 HOURS Qty: 10 Printed Acetaminophen 2 Tablet NEEDED as needed for Refills: 0 (Percocet 5-325 MG chronic pain Tablet) 5 MG-325 MG Take 2 tabs po Q8H as TABLET needed for chronic pain. Not to exceed 3 doses in 24 hours. Gabapentin Dose: ORAL, THREE TIMES DAILY Qty: 42 Sent to (Gabapentin) 400 MG 400 Milligram for anxiety/pain Refills: 0 Pharm 1 CAPSULE Take 1 cap po TID. Haloperidol Dose: ORAL, TWICE DAILY for Qty: 42 Sent to (Haloperidol) 5 MG 7.5 Milligram hallucinations/clear Refills: 0 Pharm 1 TABLET thoughts Take 1.5 tabs (7.5mg) po BID. Hominy Carbonate Dose: ORAL, DAILY BEFORE Qty: 28 Sent to (Hominy Carbonate) 300 Milligram BREAKFAST for mood Refills: 0 Pharm 1 300 MG CAPSULE stabilization Take 1 cap po QAM. Hominy Carbonate Dose: ORAL, AT BEDTIME for Qty: 14 Sent to (Hominy Carbonate) 450 Milligram mood stabilization Refills: 0 Pharm 1 150 MG CAPSULE Take 1 cap (150mg) po + 1 (300mg) cap for a total of 450mg QPM. Benztropine Mesylate Dose: ORAL, TWICE DAILY for Qty: 28 Sent to (Benztropine 1 Milligram muscle stiffness Refills: 0 Pharm 1 Mesylate) 1 MG Take 1 tab po BID. TABLET Docusate Sodium Dose: ORAL, TWICE DAILY for Qty: 28 Sent to (Docusate Sodium) 100 Milligram constipation Refills: 0 Pharm 1 100 MG CAPSULE Take 1 cap po BID. Melatonin Dose: ORAL, AT BEDTIME for Qty: 42 Sent to (Melatonin) 3 MG 9 Milligram insomnia Refills: 0 Pharm 1 TABLET Take 3 tabs po QHS. CONTINUE taking these Home Medications: Carisoprodol (SOMA) 250 Dose: ORAL, THREE TIMES DAILY MG TABLET 1 Tablet for PAIN Amlodipine (Norvasc) 2.5 Dose: ORAL, DAILY for HTN MG TABLET 1 Tablet Lisinopril (Lisinopril) Dose: ORAL, DAILY for HTN 5 MG TABLET 1 Tablet Clonazepam (Klonopin) 1 Dose: ORAL, TWICE DAILY for MG TABLET 0.5 Milligram anxiety Take 1/2 tab (0.5mg) by mouth twice daily. STOP taking these DISCONTINUED Home Medications: Aripiprazole (Abilify) 5 MG Dose: ORAL, DAILY for MOOD DISORDER TABLET 1 Tablet Reason Stopped: Per Doctor Decision 1: [facility], [address] [place] [address] Your Preferred Pharmacy [facility] [address] [place] [address] Multiple Neuroleptics: ([X]) Not Applicable OR Document below three failed attempts at monotherapy, or a plan to taper to monotherapy, or augmentation of Clozapine. () Patient's Diet: Regular. Patient's Activity: No restrictions. DC Disposition: Patient to return home and to his brother, Justin. Recommendations: Patient was advised to please take his medications as prescribed. He was provided an outpatient lab slip and instructed to get Hominy level drawn tomorrow morning, 02/12/17, before taking scheduled morning Hominy dose. He was advised to follow up with his PCP for continued pain management and elevated HA1c and triglycerides. He was [facility] and with referral to [facility]. He was advised to abstain from all substances and was educated on AA/NA services. He was strongly advised to attend AA/NA meetings and to obtain a sponsor for support in sobriety. He was advised that in the event of an emergency to call 911/go to nearest emergency department. Patient verbalized understanding of all instructions. Referred To: Post Discharge Referrals Provider Referral Service Date: 02/14/17 Referred To: [[facility]] [Dr. Rivas] Notes: [facility] [address], [place] [id number] (t)[phone] *Appointment scheduled with clinician Karishma Salinas on 02/14/17 at 9: 30AM. Appointment scheduled with Dr. Rivas on 02/14/17 at 10AM. Provider Referral Service Date: 02/12/17 Referred To: [[facility]] Notes: [facility] [address] [facility], [address] [phone])[phone] *[facility] Medication administration will begin tomorrow, 02/12/17. [facility] [address] [id number] *Referral was made while inpatient. Please follow-up for intake by calling. Copies To: Dr. Rivas; [facility]; [facility]
--- NOTE | 2017-02-11 14:47 | CP SOUTH PROGRESS NOTE PSYCH ---
Psych (Inpt) Progress Note Progress Note Include the following elements, when applicable: Involvement in the active treatment of the patient with behavioral observations of the patient and the patient's response to the treatment. Review of the ongoing treatment process in the context of the treatment plan. Indication of how multi-disciplinary staff members are carrying out the treatment plan. Plans for future interventions and recommendations for revision of the treatment plan. Liaison with other physicians/providers. Progress Note: I discussed this patient's progress to date, current mental status, treatment process in the context of the treatment plan, and discharge planning with staff/ team in the daily morning inpatient team meeting. I also met with the patient myself in individual session. OBJECTIVE: Current Medications Sig/Evon Start time Last Medication Dose Route Stop Time Status Admin Acetaminophen 500 MG Q12P PRN 02/07 1700 AC PO Amlodipine Besylate 2.5 MG DAILY 02/05 1000 AC 02/11 PO 0847 Benztropine Mesylate 1 MG BID 02/04 2200 AC 02/11 PO 0847 Carisoprodol 350 MG TID 02/04 1600 AC 02/11 PO 0846 Clonazepam 0.5 MG BID 02/08 1000 AC 02/11 PO 02/14 2159 0847 Docusate Sodium 100 MG BID 02/07 2200 AC 02/11 PO 0847 Gabapentin 400 MG TID 02/07 2200 AC 02/11 PO 0847 Gabapentin 200 MG Q6-PRN PRN 02/07 2000 AC PO Haloperidol 7.5 MG BID 02/07 2200 AC 02/11 PO 0847 Haloperidol 2 MG Q4 HRS NEEDED PRN 02/05 1500 AC 02/06 PO 2242 Lisinopril 5 MG DAILY 02/04 1515 AC 02/11 PO 0847 Peters Carbonate 300 MG DAILY AC 02/10 0700 AC 02/11 PO 0716 Peters Carbonate 450 MG AT BEDTIME 02/09 2200 AC 02/10 PO 2130 Melatonin 9 MG AT BEDTIME 02/08 2200 AC 02/10 PO 2131 Melatonin 3 MG AT BEDTIME PRN 02/07 1130 AC PO Oxycodone/ 2 TAB Q6P PRN 02/04 1530 AC 02/11 Acetaminophen PO 1208 Polyethylene Glycol 17 GM DAILY 02/07 1715 DC PO Vital Signs Date Time Temp Pulse Resp B/P B/P Pulse O2 O2 Flow FiO2 Mean Ox Delivery Rate 02/11 1209 92 138/76 05/09 0847 74 136/74 / 0847 74 136/74 02/11 0803 97.2 74 136/74 05/ 0740 97.2 74 136/74 02/10 1958 98.1 82 140/84 02/10 1623 84 148/77 ASSESSMENT: Chart, progress notes, labs, VS and medication list were reviewed. Vital signs within normal limits. No new lab results today. Patient gave permission for this writer editor to conduct a phone conference with his brother, Justin Connor, and himself. Reviewed the patient's treatment progress to date, medication regimen, level of safety, and discharge planning. Notified Justin Connor of the patient's previous reports of HI towards his ill brother. Justin expressed no safety concerns regarding the patient or with him having contact with his ill brother. He reported this brother is "out and about" and not home confined. Justin also reported that he frequently visits his ill brother. He has no safety concerns over the patient being discharged. Reported he has never made attempts to harm his brother or direct threats towards his brother. Justin, with whom the patient lives, reported he will assume responsibility for the patient post discharge. Justin was in agreement with discharge plan for patient to follow- up at [facility] and visiting nurse service. Met with the patient today on the date of discharge. He shared that he was upset about his Klonopin being decreased, and claimed that he had forgotten this was explained to him previously. When provided with rationale again, of Utox being positive for other substances, and being on a controlled substance given a recent hx of PSA, he calmed down and verbalized understanding. He reported that his mood was much improved since initial admission on 02/05/17. He described his mood a "calmer." His affect was constricted, non-labile. Speech was normal in rate, tone and volume; non-pressured. Eye contact was appropriate. He had no complaints. He rated his depression a 2/10 (10 being the worst) and anxiety a 4/ 10 (10 being the worst). He denied active and passive suicidal ideation, plans and intent. He denied urges to self harm. He denied active and passive homicidal ideation, plans and intent. He denied active and passive homicidal ideation, plans and intent towards his ill brother. When asked about what changed since initial admission, he reported "I gave a lot of thought about how acting on those thoughts would destroy my family." He stated and also believed he will not harm himself or others. He gave protective factors of "my girlfriend," and "both my brothers." He denied paranoid ideation, auditory and visual hallucinations. There was no evidence of betty delusions. Thought process was organized and linear. Cognition was grossly intact. He expressed motivation to resume outpatient treatment at [facility] and was grateful that they accepted him back as a patient. He was also agreeable to start visiting nurse services with [facility]. He reported tolerating all medications well and denied untoward medication effects. Patient reported feeling safe and ready for discharge. [facility] website reviewed today. PLAN: 1. Discharge to home and brotherJustin via [employer]. 2. F/u at [facility] on 02/14/[address] Malone at 10AM and with Clinician Karishma Salinas at 9:30AM. 3. Referral was also made to [facility]. 4. [facility] to start medication administration on 02/12/17. 5. Abstain from all substances. Patient was advised to attend daily AA/NA meetings and to obtain a sponsor for support in sobriety. 6. Patient was advised that in the event of an emergency to call 911/go to nearest emergency department. Patient verbalized understanding of all instruction. 7. Discharge prescriptions were e-prescribed to [facility] in [place], [place] today. Printed Rx of #10 tabs of Oxycodone/Acetaminophen 5-325mg tabs was printed and provided to patient for chronic pain. Patient to follow-up with PCP on , 02/13/17 for medication refill.
== END 2017-02-11 15:10 | DRG 750 ==
LOC: ERH 01:05 → ERHI 02-04 11:28 → CP SOUTH 02-04 11:28
PROVIDERS: Pediatrics; ADMIT Psychiatry & Neurology Psychiatry
DX: F25.0 Schizoaffective disorder, bipolar type (principal); F32.9 Major depressive disorder, single episode, unspecified; F10.10 Alcohol abuse, uncomplicated; F14.10 Cocaine abuse, uncomplicated; F12.20 Cannabis dependence, uncomplicated; I10 Essential (primary) hypertension
CPT/HCPCS: 36415; 80307; 93005; 93010; G0463; G0480